=== PATIENT | male | born 1995 | race Caucasian/White ===

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

== ENCOUNTER 2017-05-05 18:35 | Inpatient (IN) | payer MEDICAID ==
[~2017-05-05] VITALS: Ht 165.1 cm; Wt 73.5 kg
[2017-05-05 20:02] LABS: Basophils # (auto) 0.1 uL; Basophils % (auto) 0.3 % (0.0-2.0); Eosinophils # (auto) 0 uL; Hematocrit 48.5 % (41.0-53.0); Hemoglobin 16.8 g/dL (13.5-17.5); Lymphocytes # (auto) 1.5 uL; Lymphocytes % (auto) 7.3 % (10.0-50.0); Mean Corpuscular Hemoglobin 30.4 pg (28.0-32.0); Mean Corpuscular Hgb Conc. 34.7 g/dL (32.0-36.0); Mean Corpuscular Volume 87.6 fL (80.0-100.0); Monocytes # (auto) 0.9 uL; Monocytes % (auto) 4.1 % (0.0-12.0); Neutrophils # (auto) 18.5 uL; Neutrophils % (auto) 88.3 % (37.0-80.0); Nucleated Red Blood Cells % 0.4 %; Platelet Count (auto) 358 10^3/uL (140-450); Red Blood Cells 5.53 10^6/uL (4.5-5.90); Red Cell Distribution Width 13.8 % (11.8-14.3)
[2017-05-05 20:26] LABS: BUN/Creatinine Ratio 11.1; Bilirubin, Total 0.5 mg/dL (0.2-1.0); Calcium 9.9 mg/dL (8.5-10.1); Potassium 3.5 mmol/L (3.5-5.1); Total Protein 9.3 g/dL (6.4-8.2)
[2017-05-05] MEDS ORDERED: PANTOPRAZOLE 40 MG/10 ML VIAL IV ONE ×2 (21:54→22:00)
[2017-05-05] MEDS ORDERED: ONDANSETRON HCL 4 MG/2 ML VIAL ONE (21:54)
[2017-05-05] MEDS ORDERED: ONDANSETRON HCL 4 MG/2 ML VIAL IV ONE (22:00)
[2017-05-05] MEDS ORDERED: NALBUPHINE HCL 10 MG/1ml INJECTION IV ONE (22:30)
[2017-05-05] MEDS ORDERED: SODIUM CHLORIDE 0.9% 1,000 ML IV ONE (22:30)
[2017-05-05 22:42] LABS: Amylase 76 U/L (25-115); Lipase 112 U/L (73-393); Magnesium 2.2 mg/dL (1.6-2.6)
[2017-05-06] MEDS ORDERED: metroNIDAZOLE 500 MG TAB PO ONE
[2017-05-06] MEDS ORDERED: metroNIDAZOLE 500 MG TAB ONE (00:10)
[2017-05-06] MEDS ORDERED: LEVOFLOXACIN 500MG 100 ML IV ONE ×2 (00:10)
[2017-05-06] MEDS ORDERED: ONDANSETRON HCL 4 MG/2 ML VIAL IV ONE (00:15)
[2017-05-06] MEDS ORDERED: PANTOPRAZOLE 40 MG/10 ML VIAL IV ONE (00:45)
[2017-05-06] MEDS ORDERED: HYDROcodone-ACET 5/325MG TAB PO PRN (00:45)
[2017-05-06] MEDS ORDERED: TEMAZEPAM 15 MG CAP PO PRN (00:45)
[2017-05-06] MEDS ORDERED: SODIUM CHLORIDE 0.9% 1,000 ML IV SCH (00:45)
[2017-05-06] MEDS ORDERED: ACETAMINOPHEN 325 MG TAB PO PRN (00:45)
[2017-05-06] MEDS ORDERED: cefTRIAXone 1GM/10ml IVPUSH 10 ML IV ONE (01:00)
[2017-05-06] MEDS: ONDANSETRON HCL 4 MG/2 ML VIAL IV PRN ×2 (03:45→07:45)
[2017-05-06] MEDS: NALBUPHINE HCL 10 MG/1ml INJECTION IV PRN ×2 (03:46→17:06)
[2017-05-06 04:14] LABS: Urine Bacteria NONE SEEN /hpf (None Seen); Urine Blood Negative /uL (Negative); Urine Mucus FEW (None Seen); Urine Specific Gravity 1.033 (1.001-1.035); Urine WBC 2 /hpf (0 - 3)
[2017-05-06 04:26] LABS: Alcohol, Urine < 3.0 mg/dL (0-5); Amphetamine Screen, Urine NEGATIVE (NEGATIVE); Barbiturate Scree,Urine NEGATIVE (NEGATIVE); Benzodiazephine Screen, Urine NEGATIVE (NEGATIVE); Cannabinoid Screen, Urine POSITIVE (NEGATIVE); Cocaine Screen, Urine NEGATIVE (NEGATIVE); Opiate Scree,Urine NEGATIVE (NEGATIVE); Phencyclidine Screen, Urine NEGATIVE (NEGATIVE)
[2017-05-06] MEDS: metroNIDAZOLE 500MG/100ML 100 ML IV SCH ×3 (06:17→21:53)
[2017-05-06] MEDS: SUCRALFATE 1 GM TAB PO SCH ×4 (06:46→21:53)
[2017-05-06] MEDS: PANTOPRAZOLE 40 MG/10 ML VIAL IV SCH ×2 (09:41→21:53)
[2017-05-06] MEDS: PROMETHAZINE HCL 25 MG/ML 1ML IV PRN ×3 (10:26→20:05)
[2017-05-06] MEDS: SODIUM CHLORIDE 0.9% 1,000 ML IV SCH (10:27)
[2017-05-06 10:43] LABS: Basophils # (auto) 0 uL; Basophils % (auto) 0.3 % (0.0-2.0); Eosinophils # (auto) 0 uL; Eosinophils % (auto) 0.3 % (0.0-7.0); Hematocrit 42.8 % (41.0-53.0); Lymphocytes # (auto) 1.5 uL; Lymphocytes % (auto) 17.2 % (10.0-50.0); Mean Corpuscular Hemoglobin 30.7 pg (28.0-32.0); Mean Corpuscular Volume 87.7 fL (80.0-100.0); Monocytes # (auto) 0.7 uL; Monocytes % (auto) 7.9 % (0.0-12.0); Neutrophils # (auto) 6.4 uL; Neutrophils % (auto) 74.3 % (37.0-80.0); Nucleated Red Blood Cells % 0.1 %; Platelet Count (auto) 281 10^3/uL (140-450); Red Blood Cells 4.88 10^6/uL (4.5-5.90); Red Cell Distribution Width 13.6 % (11.8-14.3); White Blood Cell 8.6 10^3/uL (4.4-10.8)
[2017-05-06 11:00] VITALS: BP 131/66
[2017-05-06 11:03] LABS: Albumin 4.1 g/dL (3.4-5.0); BUN/Creatinine Ratio 11.4; Bilirubin, Total 0.6 mg/dL (0.2-1.0); Calcium 8.8 mg/dL (8.5-10.1); Potassium 3.4 mmol/L (3.5-5.1); Total Protein 7.9 g/dL (6.4-8.2)
[2017-05-06 13:00] VITALS: BP 116/61
[2017-05-06] MEDS ORDERED: GOLYTELY 4L KIT PO ONE (13:15)
[2017-05-06 16:06] LABS: INR 1.12 (0.9-1.15); Prothrombin Time 12.2 sec (9.37-12.3)
[2017-05-06 17:00] VITALS: BP 139/78
[2017-05-06] MEDS: cefTRIAXone 1GM/10ml IVPUSH 10 ML IV SCH (20:05)
[2017-05-06 22:00] VITALS: BP_SYST 107; BP_SYST 129; BP_DIAS 60; BP_DIAS 66
[2017-05-07] MEDS: PROMETHAZINE HCL 25 MG/ML 1ML IV PRN ×5 (00:08→21:01)
[2017-05-07] MEDS: SODIUM CHLORIDE 0.9% 1,000 ML IV SCH ×2 (04:22→22:39)
[2017-05-07 05:00] VITALS: BP 141/77
[2017-05-07] MEDS: SUCRALFATE 1 GM TAB PO SCH ×4 (05:34→22:34)
[2017-05-07] MEDS: metroNIDAZOLE 500MG/100ML 100 ML IV SCH ×3 (05:34→22:34)
[2017-05-07] MEDS ORDERED: GOLYTELY 4L KIT PO ONE (06:00)
[2017-05-07 07:46] LABS: Basophils # (auto) 0 uL; Basophils % (auto) 0.1 % (0.0-2.0); Eosinophils # (auto) 0 uL; Hematocrit 44.9 % (41.0-53.0); Hemoglobin 15.3 g/dL (13.5-17.5); Lymphocytes # (auto) 0.9 uL; Lymphocytes % (auto) 6.3 % (10.0-50.0); Mean Corpuscular Volume 88.4 fL (80.0-100.0); Monocytes # (auto) 0.4 uL; Monocytes % (auto) 2.8 % (0.0-12.0); Neutrophils # (auto) 12.9 uL; Neutrophils % (auto) 90.8 % (37.0-80.0); Platelet Count (auto) 283 10^3/uL (140-450); Red Blood Cells 5.08 10^6/uL (4.5-5.90); White Blood Cell 14.2 10^3/uL (4.4-10.8)
[2017-05-07 08:09] LABS: Albumin 4.2 g/dL (3.4-5.0); BUN/Creatinine Ratio 8.3; Bilirubin, Total 0.6 mg/dL (0.2-1.0); Calcium 8.6 mg/dL (8.5-10.1); Potassium 3.2 mmol/L (3.5-5.1); Total Protein 7.9 g/dL (6.4-8.2)
[2017-05-07] MEDS ORDERED: FLUMAZENIL 0.1 MG/ML INJ 10ML MDV IV ONE (08:15)
[2017-05-07] MEDS ORDERED: diphenhdrAMINE HCL 50 MG/1 ML VL ONE (08:15)
[2017-05-07] MEDS ORDERED: SODIUM CHLORIDE LOCK 10 ML ONE (08:15)
[2017-05-07] MEDS ORDERED: NALOXONE HCL 0.4 MG/ML VIAL ONE (08:15)
[2017-05-07 09:00] VITALS: BP 151/74
[2017-05-07] MEDS: NALBUPHINE HCL 10 MG/1ml INJECTION IV PRN ×2 (09:20→20:53)
[2017-05-07] MEDS ORDERED: POTASSIUM CHLORIDE 40 MEQ, LIDOCAINE 1% (LOCAL ANESTH.) 4 ML in SODIUM CHL 0.9% 250 ML IV ONE (09:45)
[2017-05-07] MEDS: PANTOPRAZOLE 40 MG/10 ML VIAL IV SCH ×2 (10:24→22:34)
[2017-05-07] MEDS: fentaNYL CITRATE 100 MCG/2 ML VL ONE ×5 (12:04→12:18)
[2017-05-07] MEDS: MIDAZOLAM HCL 5 MG/ML-1ML VIAL ONE ×6 (12:04→12:18)
[2017-05-07 13:00] VITALS: BP 131/75
[2017-05-07 17:00] VITALS: BP 130/70
[2017-05-07] MEDS ORDERED: PANT40T (17:57)
[2017-05-07] MEDS ORDERED: SUCR1SUS5 (17:57)
[2017-05-07] MEDS ORDERED: LORA-654 (17:57)
[2017-05-07] MEDS: cefTRIAXone 1GM/10ml IVPUSH 10 ML IV SCH (21:16)
[2017-05-07 21:30] VITALS: BP 147/68
[2017-05-08] MEDS: HYOSCYAMINE SULF 0.125 MG TAB PO PRN ×2 (00:35→06:39)
[2017-05-08] MEDS: PROMETHAZINE HCL 25 MG/ML 1ML IV PRN ×3 (00:40→09:32)
[2017-05-08] MEDS: NALBUPHINE HCL 10 MG/1ml INJECTION IV PRN (04:55)
[2017-05-08 05:00] VITALS: BP 123/59
[2017-05-08] MEDS: SUCRALFATE 1 GM TAB PO SCH (06:28)
[2017-05-08] MEDS: metroNIDAZOLE 500MG/100ML 100 ML IV SCH (06:28)
[2017-05-08 07:26] LABS: Basophils # (auto) 0 uL; Basophils % (auto) 0.5 % (0.0-2.0); Eosinophils # (auto) 0.1 uL; Eosinophils % (auto) 0.8 % (0.0-7.0); Hematocrit 43.7 % (41.0-53.0); Lymphocytes # (auto) 2.5 uL; Lymphocytes % (auto) 32.7 % (10.0-50.0); Mean Corpuscular Hemoglobin 30.3 pg (28.0-32.0); Mean Corpuscular Hgb Conc. 34.2 g/dL (32.0-36.0); Mean Corpuscular Volume 88.5 fL (80.0-100.0); Monocytes # (auto) 0.8 uL; Monocytes % (auto) 9.9 % (0.0-12.0); Neutrophils # (auto) 4.3 uL; Neutrophils % (auto) 56.1 % (37.0-80.0); Nucleated Red Blood Cells % 0.3 %; Platelet Count (auto) 274 10^3/uL (140-450); Red Blood Cells 4.94 10^6/uL (4.5-5.90); White Blood Cell 7.7 10^3/uL (4.4-10.8)
[2017-05-08 07:42] LABS: Albumin 3.8 g/dL (3.4-5.0); BUN/Creatinine Ratio 7.8; Bilirubin, Total 0.5 mg/dL (0.2-1.0); Calcium 8.4 mg/dL (8.5-10.1); Potassium 3.5 mmol/L (3.5-5.1); Total Protein 7.2 g/dL (6.4-8.2)
[2017-05-08 09:00] VITALS: BP 127/61
[2017-05-08] MEDS: PANTOPRAZOLE 40 MG/10 ML VIAL IV SCH (09:25)
[2017-05-08 10:44] VITALS: BP 127/61
[2017-05-08 11:03] VITALS: BP 127/61
[2017-07-05] MEDS ORDERED: PANT40TA2 PO (06:58)
== END 2017-05-08 11:45 | disposition home or self-care (01) | DRG 720 ==
LOC: ER 18:35 → EDBD 18:35 → OVERFLOW 19:36 → WEST WING 05-06 07:49 → CENTRAL 05-06 11:00
PROVIDERS: ADMIT Nurse Practitioner; ATTEND Internal Medicine
PROC: 0DBE8ZX Excision of Large Intestine, Via Natural or Artificial Opening Endoscopic, Diagnostic (ICD-10-PCS; principal; 2017-05-07 12:02)
DX: A41.9 Sepsis, unspecified organism (principal); E86.0 Dehydration; K52.9 Noninfective gastroenteritis and colitis, unspecified; K21.9 Gastro-esophageal reflux disease without esophagitis; Z90.49 Acquired absence of other specified parts of digestive tract; Z91.19 Patient's noncompliance with other medical treatment and regimen; Z83.79 Family history of other diseases of the digestive system; Z84.89 Family history of other specified conditions
CPT/HCPCS: 36415; 36600; 45380; 74176; 80053; 80307; 81001; 82150; 82805; 82962; 83605; 83690; 83735; 84484; 85025; 85610; 87040; 87045; 87493; 87899; 96365; 96366; 96375; C9113; J1956; J2001; J2250; J2405; J3490

== ENCOUNTER 2017-05-09 22:39 | Emergency (ER) | payer MEDICAID ==
[~2017-05-09] VITALS: Ht 165.1 cm; Wt 81.6 kg
[~2017-05-09 22:39] MED LIST: LORA-654; PANT40T; SUCR1SUS5
[2017-05-09 22:42] VITALS: BP 98/78
[2017-05-09] MEDS ORDERED: ONDANSETRON ODT 4 MG TAB PO ONE (23:15)
[2017-07-05] MEDS ORDERED: PANT40TA2 PO (06:58)
== END 2017-05-09 23:16 | disposition left against medical advice (07) ==
LOC: ER 22:48
DX: R10.84 Generalized abdominal pain (principal); R11.2 Nausea with vomiting, unspecified; Z53.21 Procedure and treatment not carried out due to patient leaving prior to being seen by health care provider
CPT/HCPCS: Q0162

== ENCOUNTER 2017-06-22 23:20 | Inpatient (IN) | payer MEDICAID ==
[~2017-06-22] VITALS: Ht 167.6 cm; Wt 76.1 kg
[2017-06-23 00:16] LABS: Basophils # (auto) 0.1 uL; Basophils % (auto) 0.5 % (0.0-2.0); Eosinophils # (auto) 0 uL; Eosinophils % (auto) 0.1 % (0.0-7.0); Hematocrit 50.5 % (41.0-53.0); Hemoglobin 17.2 g/dL (13.5-17.5); Lymphocytes # (auto) 2.7 uL; Lymphocytes % (auto) 18.1 % (10.0-50.0); Mean Corpuscular Hemoglobin 29.9 pg (28.0-32.0); Mean Corpuscular Hgb Conc. 34.1 g/dL (32.0-36.0); Mean Corpuscular Volume 87.7 fL (80.0-100.0); Monocytes # (auto) 0.8 uL; Monocytes % (auto) 5.4 % (0.0-12.0); Neutrophils # (auto) 11.3 uL; Neutrophils % (auto) 75.9 % (37.0-80.0); Nucleated Red Blood Cells % 0.1 %; Platelet Count (auto) 355 10^3/uL (140-450); Red Blood Cells 5.76 10^6/uL (4.5-5.90); Red Cell Distribution Width 14.2 % (11.8-14.3); White Blood Cell 14.9 10^3/uL (4.4-10.8)
[2017-06-23 00:43] LABS: Alanine Aminotransferase 33 U/L (16-61); Anion Gap 15 (5-15); Aspartate Aminotransferase 16 U/L (15-37); Blood Urea Nitrogen 10 mg/dL (7-18); Calcium 10.1 mg/dL (8.5-10.1); Carbon Dioxide 20 mmol/L (21-32); Chloride 105 mmol/L (98-107); GFR African American 95 mL/min; GFR Non-African American 78 mL/min; Glucose 106 mg/dL (74-106); Lipase 159 U/L (73-393); Potassium 3.2 mmol/L (3.5-5.1); Sodium 140 mmol/L (136-145)
[2017-06-23 00:50] LABS: Alkaline Phosphatase 95 U/L (45-117); Bilirubin, Total 0.6 mg/dL (0.2-1.0)
[2017-06-23] MEDS ORDERED: ONDANSETRON HCL 4 MG/2 ML VIAL IV ONE (07:15)
[2017-06-23] MEDS ORDERED: SODIUM CHLORIDE 0.9% 1,000 ML IV ONE (07:33)
[2017-06-23] MEDS ORDERED: PANTOPRAZOLE 40 MG/10 ML VIAL IV ONE (08:15)
[2017-06-23] MEDS ORDERED: VANCOMYCIN 1GM/250ML 250 ML IV ONE (08:15)
[2017-06-23] MEDS ORDERED: NALBUPHINE HCL 10 MG/1ml INJECTION IV ONE (08:15)
[2017-06-23] MEDS ORDERED: PIPERACILLIN-TAZOB 3.375GM 100 ML IV ONE (08:15)
[2017-06-23] MEDS ORDERED: HYDROcodone-ACET 5/325MG TAB PO PRN (09:15)
[2017-06-23] MEDS ORDERED: NITROGLYCERIN 0.4 MG SL TAB SL PRN (09:15)
[2017-06-23] MEDS ORDERED: MORPHINE SULFATE 4 MG/ML SYR/VIAL IV PRN (09:15)
[2017-06-23] MEDS ORDERED: TEMAZEPAM 15 MG CAP PO PRN (09:15)
[2017-06-23] MEDS ORDERED: ACETAMINOPHEN 325 MG TAB PO PRN (09:15)
[2017-06-23] MEDS ORDERED: POTASSIUM CHLORIDE 20 MEQ, LIDOCAINE 1% (LOCAL ANESTH.) 2 ML in SODIUM CHL 0.9% 100 ML IV ONE (09:15)
[2017-06-23] MEDS: SODIUM CHLORIDE 0.9% 1,000 ML IV SCH ×2 (09:24→16:48)
[2017-06-23] MEDS: PIPERACILLIN-TAZOB 3.375GM 100 ML IV SCH ×3 (09:24→21:37)
[2017-06-23] MEDS ORDERED: FAMOTIDINE (10MG/ML) 2ML VL IV SCH (10:00)
[2017-06-23] MEDS: metroNIDAZOLE 500MG/100ML 100 ML IV SCH ×2 (12:38→20:19)
[2017-06-23] MEDS ORDERED: PROM1SUP4 PR (13:21)
[2017-06-23] MEDS: ONDANSETRON HCL 4 MG/2 ML VIAL IV PRN ×3 (13:31→20:19)
[2017-06-23 14:23] LABS: INR 1.07 (0.9-1.15); Prothrombin Time 11.7 sec (9.37-12.3)
[2017-06-23 14:26] LABS: BUN/Creatinine Ratio 7.9; Calcium 8.2 mg/dL (8.5-10.1); Potassium 3.9 mmol/L (3.5-5.1)
[2017-06-23 15:25] LABS: Urine Bacteria NONE SEEN /hpf (None Seen); Urine Blood Negative /uL (Negative); Urine Mucus FEW (None Seen); Urine Specific Gravity 1.029 (1.001-1.035); Urine WBC 3 /hpf (0 - 3)
[2017-06-23 15:38] LABS: Alcohol, Urine < 3.0 mg/dL (0-5); Amphetamine Screen, Urine NEGATIVE (NEGATIVE); Barbiturate Scree,Urine NEGATIVE (NEGATIVE); Benzodiazephine Screen, Urine NEGATIVE (NEGATIVE); Cannabinoid Screen, Urine POSITIVE (NEGATIVE); Cocaine Screen, Urine NEGATIVE (NEGATIVE); Opiate Scree,Urine NEGATIVE (NEGATIVE); Phencyclidine Screen, Urine NEGATIVE (NEGATIVE)
[2017-06-23] MEDS: MORPHINE SULFATE 4 MG/ML SYR/VIAL IV PRN ×2 (17:23→21:38)
[2017-06-23 17:29] VITALS: BP 145/98
[2017-06-23] MEDS: PANTOPRAZOLE 40 MG/10 ML VIAL IV SCH (21:37)
[2017-06-23 22:00] VITALS: BP 144/72
[2017-06-23] MEDS: PROMETHAZINE HCL 25 MG/ML 1ML IV PRN (23:48)
[2017-06-24] MEDS: SODIUM CHLORIDE 0.9% 1,000 ML IV SCH ×3 (02:56→17:02)
[2017-06-24] MEDS: PIPERACILLIN-TAZOB 3.375GM 100 ML IV SCH ×4 (02:57→21:34)
[2017-06-24] MEDS: metroNIDAZOLE 500MG/100ML 100 ML IV SCH ×2 (04:45→12:38)
[2017-06-24 05:00] VITALS: BP 134/66
[2017-06-24] MEDS: PROMETHAZINE HCL 25 MG/ML 1ML IV PRN ×4 (05:35→22:34)
[2017-06-24] MEDS: MORPHINE SULFATE 4 MG/ML SYR/VIAL IV PRN ×3 (07:03→18:31)
[2017-06-24 08:00] VITALS: BP 121/60
[2017-06-24 08:27] LABS: Basophils # (auto) 0 uL; Basophils % (auto) 0.3 % (0.0-2.0); Eosinophils # (auto) 0 uL; Eosinophils % (auto) 0.4 % (0.0-7.0); Hematocrit 43.3 % (41.0-53.0); Hemoglobin 14.4 g/dL (13.5-17.5); Lymphocytes # (auto) 2.9 uL; Lymphocytes % (auto) 29.7 % (10.0-50.0); Mean Corpuscular Hemoglobin 29.5 pg (28.0-32.0); Mean Corpuscular Hgb Conc. 33.3 g/dL (32.0-36.0); Mean Corpuscular Volume 88.5 fL (80.0-100.0); Monocytes # (auto) 0.7 uL; Monocytes % (auto) 6.9 % (0.0-12.0); Neutrophils # (auto) 6.1 uL; Neutrophils % (auto) 62.7 % (37.0-80.0); Nucleated Red Blood Cells % 0.1 %; Platelet Count (auto) 249 10^3/uL (140-450); Red Blood Cells 4.89 10^6/uL (4.5-5.90); Red Cell Distribution Width 13.9 % (11.8-14.3); White Blood Cell 9.8 10^3/uL (4.4-10.8)
[2017-06-24 08:52] LABS: Albumin 3.6 g/dL (3.4-5.0); BUN/Creatinine Ratio 5.5; Bilirubin, Total 0.8 mg/dL (0.2-1.0); Calcium 8.1 mg/dL (8.5-10.1); Potassium 3.8 mmol/L (3.5-5.1); Total Protein 6.9 g/dL (6.4-8.2)
[2017-06-24 09:00] VITALS: BP 121/60
[2017-06-24] MEDS: PANTOPRAZOLE 40 MG/10 ML VIAL IV SCH (09:23)
[2017-06-24] MEDS: MULTIPLE VITAMIN TAB PO SCH (09:23)
[2017-06-24] MEDS ORDERED: PANTOPRAZOLE 40 MG/10 ML VIAL IV SCH (10:00)
[2017-06-24] MEDS ORDERED: fentaNYL CITRATE 100 MCG/2 ML VL ONE (10:52)
[2017-06-24] MEDS ORDERED: MIDAZOLAM HCL 1MG/1ML-2 ML VIAL ONE (10:53)
[2017-06-24] MEDS ORDERED: PROPOFOL 10 MG/ML 20 ML IV ONE (10:53)
[2017-06-24] MEDS ORDERED: ONDANSETRON HCL 4 MG/2 ML VIAL ONE (10:53)
[2017-06-24] MEDS ORDERED: PANTOPRAZOLE 40 MG TAB PO ONE (11:45)
[2017-06-24] MEDS ORDERED: MORPHINE SULFATE 4 MG/ML SYR/VIAL IV PRN (11:45)
[2017-06-24] MEDS ORDERED: METOCLOPRAMIDE HCL 5MG/ml INJ 2ml VIAL IV ONE (11:45)
[2017-06-24 13:00] VITALS: BP 163/85
[2017-06-24 17:00] VITALS: BP 131/51
[2017-06-24] MEDS: VANCOMYCIN HCL 125MG/5ML ORAL SOL PO SCH ×2 (18:53→21:34)
[2017-06-24 21:52] VITALS: BP 141/65
[2017-06-25] MEDS: MORPHINE SULFATE 4 MG/ML SYR/VIAL IV PRN ×4 (00:18→18:57)
[2017-06-25] MEDS: PROMETHAZINE HCL 25 MG/ML 1ML IV PRN ×4 (00:19→18:58)
[2017-06-25] MEDS: SODIUM CHLORIDE 0.9% 1,000 ML IV SCH ×3 (03:19→22:03)
[2017-06-25] MEDS: PIPERACILLIN-TAZOB 3.375GM 100 ML IV SCH ×2 (03:19→09:48)
[2017-06-25 05:39] VITALS: BP 131/62
[2017-06-25] MEDS: VANCOMYCIN HCL 125MG/5ML ORAL SOL PO SCH ×4 (05:59→22:03)
[2017-06-25 09:00] VITALS: BP 142/78
[2017-06-25] MEDS: PANTOPRAZOLE 40 MG TAB PO SCH ×2 (09:48→14:34)
[2017-06-25] MEDS: MULTIPLE VITAMIN TAB PO SCH (09:48)
[2017-06-25 12:27] VITALS: BP 137/90
[2017-06-25] MEDS: metroNIDAZOLE 500 MG TAB PO SCH ×2 (14:33→22:03)
[2017-06-25 17:00] VITALS: BP 130/74
[2017-06-25 21:55] VITALS: BP 126/68
[2017-06-26] MEDS: MORPHINE SULFATE 4 MG/ML SYR/VIAL IV PRN ×5 (00:47→21:50)
[2017-06-26] MEDS: PROMETHAZINE HCL 25 MG/ML 1ML IV PRN ×5 (00:48→21:50)
[2017-06-26 05:17] VITALS: BP 128/55
[2017-06-26] MEDS: VANCOMYCIN HCL 125MG/5ML ORAL SOL PO SCH ×4 (06:02→21:49)
[2017-06-26] MEDS: metroNIDAZOLE 500 MG TAB PO SCH ×3 (06:02→21:49)
[2017-06-26] MEDS: SODIUM CHLORIDE 0.9% 1,000 ML IV SCH ×3 (06:02→21:49)
[2017-06-26 06:34] LABS: Basophils # (auto) 0 uL; Basophils % (auto) 0.3 % (0.0-2.0); Eosinophils # (auto) 0.1 uL; Eosinophils % (auto) 0.8 % (0.0-7.0); Hematocrit 42.9 % (41.0-53.0); Lymphocytes # (auto) 2.6 uL; Lymphocytes % (auto) 33.3 % (10.0-50.0); Mean Corpuscular Hemoglobin 30.2 pg (28.0-32.0); Mean Corpuscular Hgb Conc. 34.9 g/dL (32.0-36.0); Mean Corpuscular Volume 86.5 fL (80.0-100.0); Monocytes # (auto) 0.7 uL; Monocytes % (auto) 8.6 % (0.0-12.0); Neutrophils # (auto) 4.5 uL; Nucleated Red Blood Cells % 0.3 %; Platelet Count (auto) 250 10^3/uL (140-450); Red Blood Cells 4.96 10^6/uL (4.5-5.90); Red Cell Distribution Width 13.5 % (11.8-14.3); White Blood Cell 7.9 10^3/uL (4.4-10.8)
[2017-06-26 06:59] LABS: Albumin 3.6 g/dL (3.4-5.0); BUN/Creatinine Ratio 9.5; Bilirubin, Total 0.7 mg/dL (0.2-1.0); Calcium 8.3 mg/dL (8.5-10.1); Total Protein 6.8 g/dL (6.4-8.2)
[2017-06-26 09:00] VITALS: BP 98/75
[2017-06-26] MEDS: MULTIPLE VITAMIN TAB PO SCH (09:30)
[2017-06-26] MEDS: PANTOPRAZOLE 40 MG TAB PO SCH (09:30)
[2017-06-26] MEDS ORDERED: POTASSIUM CHLORIDE 80 MEQ, LIDOCAINE 1% (LOCAL ANESTH.) 6 ML in SODIUM CHL 0.9% 500 ML IV ONE (10:45)
[2017-06-26] MEDS ORDERED: CITALOPRAM HYDROBR 20 MG TAB PO ONE (10:45)
[2017-06-26 13:00] VITALS: BP 117/72
[2017-06-26 16:17] VITALS: BP 130/70
[2017-06-26 21:40] VITALS: BP 148/71
[2017-06-27] MEDS: LORazepam 0.5 MG TAB PO PRN ×2 (02:52→15:39)
[2017-06-27 04:33] VITALS: BP 130/69
[2017-06-27] MEDS: VANCOMYCIN HCL 125MG/5ML ORAL SOL PO SCH ×4 (05:17→22:00)
[2017-06-27] MEDS: SODIUM CHLORIDE 0.9% 1,000 ML IV SCH ×3 (05:17→22:38)
[2017-06-27] MEDS: metroNIDAZOLE 500 MG TAB PO SCH ×3 (05:17→22:39)
[2017-06-27] MEDS: PROMETHAZINE HCL 25 MG/ML 1ML IV PRN ×4 (05:18→23:53)
[2017-06-27] MEDS: MORPHINE SULFATE 4 MG/ML SYR/VIAL IV PRN ×4 (05:28→23:53)
[2017-06-27 07:05] LABS: Basophils # (auto) 0 uL; Basophils % (auto) 0.2 % (0.0-2.0); Eosinophils # (auto) 0 uL; Hematocrit 46.9 % (41.0-53.0); Hemoglobin 16.4 g/dL (13.5-17.5); Lymphocytes # (auto) 1.1 uL; Lymphocytes % (auto) 6.6 % (10.0-50.0); Mean Corpuscular Hemoglobin 30.2 pg (28.0-32.0); Mean Corpuscular Volume 86.2 fL (80.0-100.0); Monocytes # (auto) 0.8 uL; Monocytes % (auto) 4.7 % (0.0-12.0); Neutrophils # (auto) 14.6 uL; Neutrophils % (auto) 88.5 % (37.0-80.0); Nucleated Red Blood Cells % 0.2 %; Platelet Count (auto) 305 10^3/uL (140-450); Red Blood Cells 5.45 10^6/uL (4.5-5.90); Red Cell Distribution Width 13.7 % (11.8-14.3); White Blood Cell 16.5 10^3/uL (4.4-10.8)
[2017-06-27 07:24] LABS: BUN/Creatinine Ratio 7.9; Calcium 8.9 mg/dL (8.5-10.1); Magnesium 2.2 mg/dL (1.6-2.6); Potassium 3.7 mmol/L (3.5-5.1)
[2017-06-27 08:27] VITALS: BP 153/85
[2017-06-27] MEDS: CITALOPRAM HYDROBR 20 MG TAB PO SCH (09:54)
[2017-06-27] MEDS: PANTOPRAZOLE 40 MG TAB PO SCH (09:54)
[2017-06-27] MEDS: MULTIPLE VITAMIN TAB PO SCH (09:57)
[2017-06-27 12:30] VITALS: BP 132/54
[2017-06-27 17:09] VITALS: BP 143/70
[2017-06-27] MEDS: BOOST 8 ounces PO SCH (18:00)
[2017-06-27 22:00] VITALS: BP 131/74
[2017-06-28 05:00] VITALS: BP 134/56
[2017-06-28] MEDS: VANCOMYCIN HCL 125MG/5ML ORAL SOL PO SCH ×2 (05:16→11:43)
[2017-06-28] MEDS: SODIUM CHLORIDE 0.9% 1,000 ML IV SCH (05:18)
[2017-06-28] MEDS: metroNIDAZOLE 500 MG TAB PO SCH (05:19)
[2017-06-28] MEDS: PROMETHAZINE HCL 25 MG/ML 1ML IV PRN (06:00)
[2017-06-28] MEDS: MORPHINE SULFATE 4 MG/ML SYR/VIAL IV PRN (06:00)
[2017-06-28 06:13] LABS: Basophils # (auto) 0 uL; Basophils % (auto) 0.5 % (0.0-2.0); Eosinophils # (auto) 0.1 uL; Eosinophils % (auto) 1.1 % (0.0-7.0); Hematocrit 45.9 % (41.0-53.0); Hemoglobin 15.7 g/dL (13.5-17.5); Lymphocytes # (auto) 3.1 uL; Lymphocytes % (auto) 38.9 % (10.0-50.0); Mean Corpuscular Hemoglobin 29.7 pg (28.0-32.0); Mean Corpuscular Hgb Conc. 34.2 g/dL (32.0-36.0); Mean Corpuscular Volume 86.7 fL (80.0-100.0); Monocytes # (auto) 0.7 uL; Monocytes % (auto) 8.9 % (0.0-12.0); Neutrophils # (auto) 4.1 uL; Neutrophils % (auto) 50.6 % (37.0-80.0); Nucleated Red Blood Cells % 0.1 %; Platelet Count (auto) 286 10^3/uL (140-450); Red Blood Cells 5.29 10^6/uL (4.5-5.90); Red Cell Distribution Width 13.7 % (11.8-14.3); White Blood Cell 8.1 10^3/uL (4.4-10.8)
[2017-06-28 06:53] LABS: BUN/Creatinine Ratio 7.2; Calcium 8.3 mg/dL (8.5-10.1); Potassium 3.5 mmol/L (3.5-5.1)
[2017-06-28 08:00] VITALS: BP 122/66
[2017-06-28] MEDS: BOOST 8 ounces PO SCH ×2 (08:00→11:43)
[2017-06-28 09:00] VITALS: BP 122/66
[2017-06-28] MEDS: MULTIPLE VITAMIN TAB PO SCH (09:34)
[2017-06-28] MEDS: CITALOPRAM HYDROBR 20 MG TAB PO SCH (09:34)
[2017-06-28] MEDS: PANTOPRAZOLE 40 MG TAB PO SCH (09:34)
[2017-06-28 11:44] VITALS: BP 122/66
[2017-07-05] MEDS ORDERED: PANT40TA2 PO (06:58)
== END 2017-06-28 13:10 | disposition home or self-care (01) | DRG 241 ==
LOC: ER 23:23 → TELE 23:24 → TELE-EAST 06-23 15:48
PROVIDERS: ADMIT Internal Medicine; ATTEND Internal Medicine
PROC: 0DB68ZX Excision of Stomach, Via Natural or Artificial Opening Endoscopic, Diagnostic (ICD-10-PCS; principal; 2017-06-24 11:20)
DX: K29.71 Gastritis, unspecified, with bleeding (principal); A04.72 Enterocolitis due to Clostridium difficile, not specified as recurrent; E86.0 Dehydration; K21.9 Gastro-esophageal reflux disease without esophagitis; E87.6 Hypokalemia; F32.9 Major depressive disorder, single episode, unspecified; F12.90 Cannabis use, unspecified, uncomplicated; F41.9 Anxiety disorder, unspecified; N18.2 Chronic kidney disease, stage 2 (mild); Z90.49 Acquired absence of other specified parts of digestive tract; Z79.899 Other long term (current) drug therapy
CPT/HCPCS: 36415; 43239; 74176; 80048; 80053; 80307; 81001; 82270; 83605; 83690; 83735; 83880; 84484; 85025; 85610; 87040; 87045; 87493; 87899; 93005; 96361; 96374; 96375; C9113; J2001; J2250; J2405; J2543; J2704; J3490

== ENCOUNTER 2017-07-02 11:18 | Emergency (ER) | payer MEDICAID ==
[~2017-07-02] VITALS: Ht 165.1 cm; Wt 77.1 kg
[~2017-07-02 11:18] MED LIST changes: -LORA-654; +PROM1SUP4 PR; -SUCR1SUS5
[2017-07-02 11:32] VITALS: BP 132/90
[2017-07-02 12:10] LABS: Basophils # (auto) 0 uL; Basophils % (auto) 0.2 % (0.0-2.0); Eosinophils # (auto) 0 uL; Eosinophils % (auto) 0.2 % (0.0-7.0); Hematocrit 46.9 % (41.0-53.0); Hemoglobin 15.9 g/dL (13.5-17.5); Lymphocytes # (auto) 1.4 uL; Lymphocytes % (auto) 8.5 % (10.0-50.0); Mean Corpuscular Hemoglobin 29.8 pg (28.0-32.0); Mean Corpuscular Volume 87.8 fL (80.0-100.0); Monocytes # (auto) 0.6 uL; Monocytes % (auto) 3.6 % (0.0-12.0); Neutrophils # (auto) 14.8 uL; Neutrophils % (auto) 87.5 % (37.0-80.0); Platelet Count (auto) 324 10^3/uL (140-450); Red Blood Cells 5.35 10^6/uL (4.5-5.90); Red Cell Distribution Width 14.2 % (11.8-14.3)
[2017-07-02 12:31] LABS: Albumin 4.1 g/dL (3.4-5.0); BUN/Creatinine Ratio 5.8; Bilirubin, Total 0.3 mg/dL (0.2-1.0); Calcium 8.8 mg/dL (8.5-10.1); Potassium 3.8 mmol/L (3.5-5.1); Total Protein 7.7 g/dL (6.4-8.2)
[2017-07-05] MEDS ORDERED: PANT40TA2 PO (06:58)
== END 2017-07-02 12:01 | disposition left against medical advice (07) ==
LOC: EDBD 11:18 → ER 11:18
DX: R10.9 Unspecified abdominal pain (principal); Z53.21 Procedure and treatment not carried out due to patient leaving prior to being seen by health care provider
CPT/HCPCS: 36415; 80053; 82150; 83690; 85025; 93005

== ENCOUNTER 2017-07-03 09:56 | Emergency (ER) | payer MEDICAID ==
[~2017-07-03] VITALS: Ht 175.3 cm; Wt 72.6 kg
[2017-07-03] MEDS ORDERED: SODIUM CHLORIDE 0.9% 1,000 ML IVB ONE (10:52)
[2017-07-03] MEDS ORDERED: PANTOPRAZOLE 40 MG/10 ML VIAL IV STA (10:52)
[2017-07-03] MEDS ORDERED: PROCHLORPERAZINE EDISYLATE 5 MG/ML 2ML VIAL IV ONE (11:00)
[2017-07-03] MEDS ORDERED: MORPHINE SULFATE 4 MG/ML SYR/VIAL IV ONE (11:00)
[2017-07-03 11:23] LABS: Basophils # (auto) 0 uL; Basophils % (auto) 0.4 % (0.0-2.0); Eosinophils # (auto) 0 uL; Eosinophils % (auto) 0.1 % (0.0-7.0); Hematocrit 49.2 % (41.0-53.0); Hemoglobin 16.5 g/dL (13.5-17.5); Lymphocytes # (auto) 1.4 uL; Mean Corpuscular Hemoglobin 29.6 pg (28.0-32.0); Mean Corpuscular Hgb Conc. 33.6 g/dL (32.0-36.0); Mean Corpuscular Volume 88.2 fL (80.0-100.0); Monocytes # (auto) 0.6 uL; Monocytes % (auto) 4.6 % (0.0-12.0); Neutrophils # (auto) 11.8 uL; Neutrophils % (auto) 84.9 % (37.0-80.0); Nucleated Red Blood Cells % 0.1 %; Platelet Count (auto) 390 10^3/uL (140-450); Red Blood Cells 5.57 10^6/uL (4.5-5.90); Red Cell Distribution Width 14.2 % (11.8-14.3); White Blood Cell 13.9 10^3/uL (4.4-10.8)
[2017-07-03 11:54] LABS: Albumin 4.6 g/dL (3.4-5.0); BUN/Creatinine Ratio 6.3; Bilirubin, Total 0.5 mg/dL (0.2-1.0); Calcium 9.3 mg/dL (8.5-10.1); Potassium 3.4 mmol/L (3.5-5.1); Total Protein 8.3 g/dL (6.4-8.2)
[2017-07-03 13:00] VITALS: BP 128/76
[2017-07-03] MEDS ORDERED: BACITRACIN TOP OINT 1 UD PKG TOP ONE (13:04)
[2017-07-05] MEDS ORDERED: PANT40TA2 PO (06:58)
== END 2017-07-03 13:38 | disposition home or self-care (01) ==
LOC: ER 09:56 → EDBD 09:56 → EDSEX 09:56 → ER 13:38
DX: K21.9 Gastro-esophageal reflux disease without esophagitis (principal); F12.10 Cannabis abuse, uncomplicated; Z90.49 Acquired absence of other specified parts of digestive tract
CPT/HCPCS: 36415; 80053; 82150; 83690; 85025; 94761; 96361; 96374; 96375; 99285; C9113; J0780; J2270

== ENCOUNTER 2017-09-04 12:19 | Emergency (ER) | payer MEDICAID, OTHER ==
[~2017-09-04] VITALS: Ht 165.1 cm; Wt 77.1 kg
[~2017-09-04 12:19] MED LIST changes: +PANT40TA2 PO; -PROM1SUP4 PR
[2017-09-04] MEDS ORDERED: SODIUM CHLORIDE 0.9% 1,000 ML IVB ONE (12:32)
[2017-09-04] MEDS ORDERED: PANTOPRAZOLE 40 MG/10 ML VIAL IV STA (12:32)
[2017-09-04] MEDS ORDERED: MORPHINE SULFATE 4 MG/ML SYR/VIAL ONE (12:40)
[2017-09-04] MEDS ORDERED: ONDANSETRON HCL 4 MG/2 ML VIAL IV ONE (12:45)
[2017-09-04] MEDS ORDERED: MORPHINE SULFATE 8mg/ml INJ SDV IV ONE (12:45)
[2017-09-04 12:54] LABS: Basophils # (auto) 0 uL; Basophils % (auto) 0.3 % (0.0-2.0); Eosinophils # (auto) 0 uL; Eosinophils % (auto) 0.1 % (0.0-7.0); Hematocrit 49.6 % (41.0-53.0); Hemoglobin 16.8 g/dL (13.5-17.5); Lymphocytes # (auto) 1.5 uL; Mean Corpuscular Hgb Conc. 33.8 g/dL (32.0-36.0); Mean Corpuscular Volume 88.7 fL (80.0-100.0); Monocytes # (auto) 0.7 uL; Neutrophils # (auto) 14.7 uL; Neutrophils % (auto) 86.6 % (37.0-80.0); Nucleated Red Blood Cells % 0.1 %; Platelet Count (auto) 289 10^3/uL (140-450); Red Blood Cells 5.59 10^6/uL (4.5-5.90); Red Cell Distribution Width 13.9 % (11.8-14.3); White Blood Cell 16.9 10^3/uL (4.4-10.8)
[2017-09-04 13:19] LABS: Albumin 4.7 g/dL (3.4-5.0); BUN/Creatinine Ratio 11.4; Bilirubin, Total 0.8 mg/dL (0.2-1.0); Calcium 9.7 mg/dL (8.5-10.1); Potassium 3.6 mmol/L (3.5-5.1); Total Protein 8.6 g/dL (6.4-8.2)
[2017-09-04] MEDS ORDERED: PROCHLORPERAZINE EDISYLATE 5 MG/ML 2ML VIAL IV ONE (14:00)
[2017-09-04] MEDS ORDERED: SODIUM CHLORIDE 0.9% 1,000 ML IV ONE (14:00)
[2017-09-04 15:04] VITALS: BP 152/63
== END 2017-09-04 15:05 | disposition home or self-care (01) ==
LOC: ER 12:19 → EDBD 12:19 → ER 15:02
DX: F12.988 Cannabis use, unspecified with other cannabis-induced disorder (principal); R11.10 Vomiting, unspecified; K21.9 Gastro-esophageal reflux disease without esophagitis; Z88.8 Allergy status to other drugs, medicaments and biological substances; Z90.49 Acquired absence of other specified parts of digestive tract
CPT/HCPCS: 36415; 80053; 82150; 83690; 85025; 94761; 96361; 96374; 96375; 99285; C9113; J0780; J2270; J2405; J7030

== ENCOUNTER 2017-09-06 10:55 | Emergency (ER) | payer OTHER ==
[~2017-09-06] VITALS: Ht 167.6 cm; Wt 63.5 kg
[2017-09-06] MEDS ORDERED: SODIUM CHLORIDE 0.9% 1,000 ML IV ONE ×2 (11:07)
[2017-09-06] MEDS ORDERED: PROMETHAZINE HCL 25 MG/ML 1ML ONE (11:12)
[2017-09-06] MEDS ORDERED: METOCLOPRAMIDE HCL 5MG/ml INJ 2ml VIAL IV ONE (11:15)
[2017-09-06 11:21] VITALS: BP 141/88
[2017-09-06] MEDS ORDERED: PROMETHAZINE HCL 25 MG/ML 1ML IM ONE (11:30)
[2017-09-06 13:30] LABS: Basophils # (auto) 0.1 uL; Basophils % (auto) 0.4 % (0.0-2.0); Eosinophils # (auto) 0 uL; Eosinophils % (auto) 0.3 % (0.0-7.0); Hemoglobin 16.6 g/dL (13.5-17.5); Lymphocytes # (auto) 1.6 uL; Lymphocytes % (auto) 12.1 % (10.0-50.0); Mean Corpuscular Hgb Conc. 34.6 g/dL (32.0-36.0); Mean Corpuscular Volume 86.8 fL (80.0-100.0); Monocytes # (auto) 0.8 uL; Monocytes % (auto) 5.9 % (0.0-12.0); Neutrophils # (auto) 10.6 uL; Neutrophils % (auto) 81.3 % (37.0-80.0); Nucleated Red Blood Cells % 0.2 %; Platelet Count (auto) 274 10^3/uL (140-450); Red Blood Cells 5.53 10^6/uL (4.5-5.90); Red Cell Distribution Width 13.9 % (11.8-14.3); White Blood Cell 13.1 10^3/uL (4.4-10.8)
[2017-09-06 13:34] LABS: BUN/Creatinine Ratio 8.3; Potassium 3.4 mmol/L (3.5-5.1)
[2017-09-06 13:35] LABS: Albumin 4.6 g/dL (3.4-5.0); Bilirubin, Total 1.1 mg/dL (0.2-1.0); Calcium 9.4 mg/dL (8.5-10.1); Total Protein 8.2 g/dL (6.4-8.2)
== END 2017-09-06 13:15 | disposition left against medical advice (07) ==
LOC: EDBD 10:55 → ER 11:00
DX: R11.2 Nausea with vomiting, unspecified (principal); F12.10 Cannabis abuse, uncomplicated; K21.9 Gastro-esophageal reflux disease without esophagitis; Z88.6 Allergy status to analgesic agent; Z88.8 Allergy status to other drugs, medicaments and biological substances; Z90.49 Acquired absence of other specified parts of digestive tract
CPT/HCPCS: 36415; 80053; 85025; 96361; 96372; 96374; 99285; J2550; J2765; J7030

== ENCOUNTER 2017-09-06 16:12 | Emergency (ER) | payer OTHER ==
[~2017-09-06] VITALS: Ht 162.6 cm; Wt 79.4 kg
[2017-09-06] MEDS ORDERED: SODIUM CHLORIDE 0.9% 1,000 ML IV ONE (16:29)
[2017-09-06] MEDS ORDERED: PROMETHAZINE HCL 25 MG/ML 1ML IV ONE (16:30)
[2017-09-06] MEDS ORDERED: ONDANSETRON HCL 4 MG/2 ML VIAL ONE (19:49)
[2017-09-06 19:55] VITALS: BP 130/78
[2017-09-06] MEDS ORDERED: ONDANSETRON HCL 4 MG/2 ML VIAL IM ONE (20:00)
== END 2017-09-06 20:02 | disposition home or self-care (01) ==
LOC: ER 16:12
DX: R11.2 Nausea with vomiting, unspecified (principal); F12.10 Cannabis abuse, uncomplicated; K21.9 Gastro-esophageal reflux disease without esophagitis; Z90.49 Acquired absence of other specified parts of digestive tract; Z88.8 Allergy status to other drugs, medicaments and biological substances
CPT/HCPCS: 96372; 99283; J2405

== ENCOUNTER 2017-09-08 07:54 | Emergency (ER) | payer OTHER ==
[~2017-09-08] VITALS: Ht 165.1 cm; Wt 77.1 kg
[2017-09-08 08:47] LABS: Basophils # (auto) 0 uL; Basophils % (auto) 0.5 % (0.0-2.0); Eosinophils # (auto) 0.1 uL; Eosinophils % (auto) 0.9 % (0.0-7.0); Hematocrit 45.5 % (41.0-53.0); Hemoglobin 15.8 g/dL (13.5-17.5); Lymphocytes # (auto) 2.5 uL; Lymphocytes % (auto) 30.3 % (10.0-50.0); Mean Corpuscular Hemoglobin 29.8 pg (28.0-32.0); Mean Corpuscular Hgb Conc. 34.7 g/dL (32.0-36.0); Mean Corpuscular Volume 85.7 fL (80.0-100.0); Monocytes # (auto) 0.6 uL; Monocytes % (auto) 7.6 % (0.0-12.0); Neutrophils # (auto) 4.9 uL; Neutrophils % (auto) 60.7 % (37.0-80.0); Nucleated Red Blood Cells % 0.1 %; Platelet Count (auto) 294 10^3/uL (140-450); Red Blood Cells 5.31 10^6/uL (4.5-5.90); Red Cell Distribution Width 13.8 % (11.8-14.3); White Blood Cell 8.1 10^3/uL (4.4-10.8)
[2017-09-08] MEDS ORDERED: PROMETHAZINE HCL 25 MG/ML 1ML IV ONE (09:00)
[2017-09-08 09:02] LABS: BUN/Creatinine Ratio 9.3; Calcium 9.1 mg/dL (8.5-10.1)
[2017-09-08] MEDS ORDERED: SODIUM CHLORIDE 0.9% 1,000 ML IV ONE ×2 (09:07)
[2017-09-08] MEDS ORDERED: PANTOPRAZOLE 40 MG/10 ML VIAL IV ONE (10:45)
[2017-09-08 11:24] LABS: Urine Bacteria NONE SEEN /hpf (None Seen); Urine Blood Negative /uL (Negative); Urine Mucus MODERATE (None Seen); Urine Specific Gravity 1.032 (1.001-1.035); Urine WBC 7 /hpf (0 - 3)
[2017-09-08 11:30] VITALS: BP 150/74
[2017-09-08 11:35] LABS: Amphetamine Screen, Urine NEGATIVE (NEGATIVE); Barbiturate Scree,Urine NEGATIVE (NEGATIVE); Benzodiazephine Screen, Urine NEGATIVE (NEGATIVE); Cannabinoid Screen, Urine POSITIVE (NEGATIVE); Cocaine Screen, Urine NEGATIVE (NEGATIVE); Opiate Scree,Urine NEGATIVE (NEGATIVE); Phencyclidine Screen, Urine NEGATIVE (NEGATIVE)
[2017-09-08] MEDS ORDERED: POTASSIUM CHL 10% (20 MEQ/15ML) 15ml ORAL SOLN PO ONE (12:30)
== END 2017-09-08 12:33 | disposition home or self-care (01) ==
LOC: EDBD 07:54 → EDUNIT# 07:54 → ER 07:54
DX: F12.10 Cannabis abuse, uncomplicated (principal); R11.2 Nausea with vomiting, unspecified; K21.9 Gastro-esophageal reflux disease without esophagitis; Z88.8 Allergy status to other drugs, medicaments and biological substances; Z91.048 Other nonmedicinal substance allergy status; Z90.49 Acquired absence of other specified parts of digestive tract
CPT/HCPCS: 36415; 80048; 80307; 81001; 85025; 96361; 96374; 96375; 99285; C9113; J2550; J7030

== ENCOUNTER 2017-09-09 11:14 | Emergency (ER) | payer OTHER ==
[~2017-09-09] VITALS: Ht 167.6 cm; Wt 77.1 kg
[2017-09-09] MEDS ORDERED: ONDANSETRON ODT 4 MG TAB PO ONE (11:30)
[2017-09-09] MEDS ORDERED: PANTOPRAZOLE 40 MG TAB PO ONE (11:30)
[2017-09-09 11:57] VITALS: BP 121/70
== END 2017-09-09 12:18 | disposition home or self-care (01) ==
LOC: ER 11:14 → EDBD 11:14 → ER 12:18
DX: K29.70 Gastritis, unspecified, without bleeding (principal); F12.10 Cannabis abuse, uncomplicated; K21.9 Gastro-esophageal reflux disease without esophagitis; Z88.8 Allergy status to other drugs, medicaments and biological substances; Z91.048 Other nonmedicinal substance allergy status; Z90.49 Acquired absence of other specified parts of digestive tract
CPT/HCPCS: 99283; Q0162

== ENCOUNTER 2017-12-01 13:45 | Emergency (ER) | payer MEDICAID, OTHER ==
[~2017-12-01] VITALS: Ht 165.1 cm; Wt 77.1 kg
[2017-12-01 14:14] VITALS: BP 136/62
[2017-12-01 14:55] LABS: Hematocrit 48.6 % (41.0-53.0); Hemoglobin 17.1 g/dL (13.5-17.5); Mean Corpuscular Hemoglobin 29.9 pg (28.0-32.0); Mean Corpuscular Hgb Conc. 35.2 g/dL (32.0-36.0); Platelet Count (auto) 329 10^3/uL (140-450); Red Blood Cells 5.72 10^6/uL (4.5-5.90); Red Cell Distribution Width 13.8 % (11.8-14.3); White Blood Cell 12.1 10^3/uL (4.4-10.8)
[2017-12-01 15:03] LABS: Band Neutrophils % (manual) 0; Basophils % (manual) 0 (0.0-2.0); Blast Cells 0; Eosinophils % (manual) 0 (0-7); Metamyelocytes % 0; Myelocytes % 0; Promyelocytes % 0; Reactive Lymphocytes 0
[2017-12-01 15:18] LABS: Alanine Aminotransferase 36 U/L (16-61); Albumin 4.7 g/dL (3.4-5.0); Alkaline Phosphatase 89 U/L (45-117); Anion Gap 17 (5-15); Aspartate Aminotransferase 28 U/L (15-37); BUN/Creatinine Ratio 17.2; Bilirubin, Total 1.9 mg/dL (0.2-1.0); Blood Urea Nitrogen 25 mg/dL (7-18); Calcium 8.5 mg/dL (8.5-10.1); Carbon Dioxide 28 mmol/L (21-32); Chloride 85 mmol/L (98-107); GFR African American 80 mL/min; GFR Non-African American 66 mL/min; Glucose 93 mg/dL (74-106); Sodium 130 mmol/L (136-145); Total Protein 8.4 g/dL (6.4-8.2)
[2017-12-01 15:31] LABS: Potassium 2.6 mmol/L (3.5-5.1)
[2017-12-01] MEDS ORDERED: POTASSIUM CHL 20MEQ/100ML 100 ML IV ONE (15:45)
[2017-12-01] MEDS ORDERED: ALUM & MAG HYDROX-SIMETH LIQ(MAALOX) 30 ML PO ONE (16:00)
[2017-12-01 16:42] LABS: Lymphocytes % (manual) 10 (10.0-50.0); Monocytes % (manual) 12 (0-12)
== END 2017-12-01 17:54 | disposition left against medical advice (07) ==
LOC: EDBD 13:45 → ER 13:48
DX: F45.8 Other somatoform disorders (principal); K21.9 Gastro-esophageal reflux disease without esophagitis; E87.6 Hypokalemia; Z53.29 Procedure and treatment not carried out because of patient's decision for other reasons; Z90.49 Acquired absence of other specified parts of digestive tract
CPT/HCPCS: 36415; 70450; 71045; 80053; 84484; 85007; 85027; 93005; 94761

== ENCOUNTER 2018-03-13 12:07 | Emergency (ER) | payer MEDICAID ==
[~2018-03-13] VITALS: Ht 165.1 cm; Wt 81.6 kg
[2018-03-13] MEDS ORDERED: SODIUM CHLORIDE 0.9% 1,000 ML IV ONE (12:51)
[2018-03-13 12:58] LABS: Basophils # (auto) 0 uL; Basophils % (auto) 0.2 % (0.0-2.0); Eosinophils # (auto) 0 uL; Hemoglobin 17.9 g/dL (13.5-17.5); Monocytes # (auto) 0.7 uL; Neutrophils # (auto) 10.6 uL
[2018-03-13 13:00] LABS: Hematocrit 50.1 % (41.0-53.0); Lymphocytes # (auto) 1.2 uL; Lymphocytes % (auto) 9.6 % (10.0-50.0); Mean Corpuscular Hemoglobin 30.2 pg (28.0-32.0); Mean Corpuscular Hgb Conc. 35.8 g/dL (32.0-36.0); Mean Corpuscular Volume 84.3 fL (80.0-100.0); Monocytes % (auto) 5.7 % (0.0-12.0); Neutrophils % (auto) 84.5 % (37.0-80.0); Nucleated Red Blood Cells % 0.1 %; Platelet Count (auto) 314 10^3/uL (140-450); Red Blood Cells 5.95 10^6/uL (4.5-5.90); Red Cell Distribution Width 13.5 % (11.8-14.3); White Blood Cell 12.6 10^3/uL (4.4-10.8)
[2018-03-13] MEDS ORDERED: PANTOPRAZOLE 40 MG/10 ML VIAL IV ONE (13:00)
[2018-03-13 13:29] LABS: Albumin 4.7 g/dL (3.4-5.0); Calcium 9.3 mg/dL (8.5-10.1); Potassium 3.2 mmol/L (3.5-5.1)
[2018-03-13 13:34] LABS: BUN/Creatinine Ratio 16.9; Bilirubin, Total 1.5 mg/dL (0.2-1.0); Total Protein 8.2 g/dL (6.4-8.2)
[2018-03-13 13:40] VITALS: BP 133/73
[2018-03-13] MEDS ORDERED: POTASSIUM EFFERVESENT TAB 25 MEQ PO ONE (15:30)
== END 2018-03-13 16:51 | disposition home or self-care (01) ==
LOC: EDBD 12:07 → ER 12:07
DX: K21.9 Gastro-esophageal reflux disease without esophagitis (principal); R11.2 Nausea with vomiting, unspecified; D72.829 Elevated white blood cell count, unspecified; F12.10 Cannabis abuse, uncomplicated; Z88.8 Allergy status to other drugs, medicaments and biological substances; Z90.49 Acquired absence of other specified parts of digestive tract; Z79.899 Other long term (current) drug therapy
CPT/HCPCS: 36415; 74176; 80053; 82150; 83690; 85025; 96361; 96374; 99284; C9113; J7030

== ENCOUNTER 2018-06-07 14:43 | Emergency (ER) | payer MEDICAID ==
[~2018-06-07] VITALS: Ht 162.6 cm; Wt 77.1 kg
[2018-06-07 15:28] LABS: Basophils # (auto) 0 uL; Basophils % (auto) 0.3 % (0.0-2.0); Eosinophils # (auto) 0 uL; Eosinophils % (auto) 0.1 % (0.0-7.0); Hematocrit 47.4 % (41.0-53.0); Hemoglobin 16.1 g/dL (13.5-17.5); Lymphocytes # (auto) 1.1 uL; Lymphocytes % (auto) 12.2 % (10.0-50.0); Mean Corpuscular Hemoglobin 29.8 pg (28.0-32.0); Mean Corpuscular Volume 87.6 fL (80.0-100.0); Monocytes # (auto) 0.3 uL; Monocytes % (auto) 3.5 % (0.0-12.0); Neutrophils # (auto) 7.5 uL; Neutrophils % (auto) 83.9 % (37.0-80.0); Nucleated Red Blood Cells % 0.2 %; Platelet Count (auto) 387 10^3/uL (140-450); Red Blood Cells 5.41 10^6/uL (4.5-5.90); Red Cell Distribution Width 14.3 % (11.8-14.3)
[2018-06-07 15:56] LABS: Albumin 4.6 g/dL (3.4-5.0); Calcium 9.7 mg/dL (8.5-10.1); Potassium 4.3 mmol/L (3.5-5.1)
[2018-06-07 15:59] LABS: BUN/Creatinine Ratio 8.6; Bilirubin, Total 0.4 mg/dL (0.2-1.0); Total Protein 8.3 g/dL (6.4-8.2)
[2018-06-07] MEDS ORDERED: PROCHLORPERAZINE EDISYLATE 5 MG/ML 2ML VIAL IV ONE ×2 (17:15→19:30)
[2018-06-07] MEDS ORDERED: ONDANSETRON HCL 4 MG/2 ML VIAL IV ONE (17:30)
[2018-06-07] MEDS ORDERED: ALUM & MAG HYDROX-SIMETH LIQ(MAALOX) 30 ML PO ONE (18:15)
[2018-06-07] MEDS ORDERED: DONNATAL 5ml ORAL Elix (BELLADONNA ALK-PHENOBARB) PO ONE (18:15)
[2018-06-07] MEDS ORDERED: PANTOPRAZOLE 40 MG/10 ML VIAL IV ONE (18:15)
[2018-06-07] MEDS ORDERED: LIDOCAINE VISCOUS 2% 15ML UD PO ONE (18:15)
[2018-06-07] MEDS ORDERED: SODIUM CHLORIDE 0.9% 1,000 ML IV ONE (19:30)
[2018-06-07] MEDS ORDERED: MORPHINE SULFATE 4 MG/ML SYR/VIAL IV ONE (19:30)
[2018-06-07 19:45] VITALS: BP 108/57
[2018-06-07 20:20] LABS: Urine Bacteria NONE SEEN /hpf (None Seen); Urine Blood Negative /uL (Negative); Urine Mucus FEW (None Seen); Urine Specific Gravity 1.018 (1.001-1.035); Urine WBC <1 /hpf (0 - 3)
[2018-06-07 20:45] LABS: Alcohol, Urine < 3.0 mg/dL (0-5); Amphetamine Screen, Urine NEGATIVE (NEGATIVE); Barbiturate Scree,Urine NEGATIVE (NEGATIVE); Benzodiazephine Screen, Urine NEGATIVE (NEGATIVE); Cannabinoid Screen, Urine POSITIVE (NEGATIVE); Cocaine Screen, Urine NEGATIVE (NEGATIVE); Opiate Scree,Urine NEGATIVE (NEGATIVE); Phencyclidine Screen, Urine NEGATIVE (NEGATIVE)
== END 2018-06-07 21:46 | disposition home or self-care (01) ==
LOC: ER 14:43 → EDBD 14:43 → ER 21:46
DX: K29.70 Gastritis, unspecified, without bleeding (principal); R06.6 Hiccough; F19.10 Other psychoactive substance abuse, uncomplicated; K21.9 Gastro-esophageal reflux disease without esophagitis; Z90.49 Acquired absence of other specified parts of digestive tract; F12.90 Cannabis use, unspecified, uncomplicated; Z88.8 Allergy status to other drugs, medicaments and biological substances; Z79.899 Other long term (current) drug therapy
CPT/HCPCS: 36415; 74176; 80053; 80307; 81001; 82150; 83690; 85025; 96361; 96374; 96375; 99284; C9113; J0780; J2270; J2405; J7030

== ENCOUNTER 2018-12-24 15:41 | Emergency (ER) | payer MEDICAID ==
[~2018-12-24] VITALS: Ht 165.1 cm; Wt 79.4 kg
[2018-12-24] MEDS ORDERED: FAMOTIDINE (10MG/ML) 2ML VL IV ONE (16:30)
[2018-12-24] MEDS ORDERED: ONDANSETRON HCL 4 MG/2 ML VIAL IV ONE (16:30)
[2018-12-24] MEDS ORDERED: MORPHINE SULFATE 4 MG/ML SYR/VIAL IV ONE (16:30)
[2018-12-24] MEDS ORDERED: SODIUM CHLORIDE 0.9% 1,000 ML IVB ONE (16:30)
[2018-12-24 17:29] LABS: Basophils # (auto) 0 uL; Basophils % (auto) 0.2 % (0.0-2.0); Eosinophils # (auto) 0 uL; Hematocrit 49.5 % (41.0-53.0); Hemoglobin 17.2 g/dL (13.5-17.5); Lymphocytes # (auto) 1.2 uL; Lymphocytes % (auto) 12.4 % (10.0-50.0); Mean Corpuscular Hemoglobin 30.3 pg (28.0-32.0); Mean Corpuscular Hgb Conc. 34.8 g/dL (32.0-36.0); Mean Corpuscular Volume 87.1 fL (80.0-100.0); Monocytes # (auto) 0.6 uL; Monocytes % (auto) 6.1 % (0.0-12.0); Neutrophils % (auto) 81.3 % (37.0-80.0); Nucleated Red Blood Cells % 0.3 %; Platelet Count (auto) 375 10^3/uL (140-450); Red Blood Cells 5.68 10^6/uL (4.5-5.90); Red Cell Distribution Width 13.9 % (11.8-14.3); White Blood Cell 9.9 10^3/uL (4.4-10.8)
[2018-12-24 17:38] LABS: Albumin 5.2 g/dL (3.4-5.0); BUN/Creatinine Ratio 12.9; Calcium 9.9 mg/dL (8.5-10.1); Potassium 3.6 mmol/L (3.5-5.1)
[2018-12-24 17:40] LABS: Bilirubin, Total 1.3 mg/dL (0.2-1.0); Total Protein 9.1 g/dL (6.4-8.2)
[2018-12-24 19:19] VITALS: BP 129/76
== END 2018-12-24 19:55 | disposition home or self-care (01) ==
LOC: ER 15:41
DX: F12.188 Cannabis abuse with other cannabis-induced disorder (principal); K21.9 Gastro-esophageal reflux disease without esophagitis; Z90.49 Acquired absence of other specified parts of digestive tract; Z88.6 Allergy status to analgesic agent; Z88.8 Allergy status to other drugs, medicaments and biological substances
CPT/HCPCS: 36415; 80053; 83690; 85025; 94761; 96361; 96374; 96375; 99283; J2270; J2405; J3490; J7030

== ENCOUNTER 2018-12-25 12:31 | Emergency (ER) | payer MEDICAID ==
[~2018-12-25] VITALS: Ht 177.8 cm; Wt 79.4 kg
[2018-12-25] MEDS ORDERED: SODIUM CHLORIDE 0.9% 1,000 ML IVB ONE (12:38)
[2018-12-25] MEDS ORDERED: ONDANSETRON HCL 4 MG/2 ML VIAL IV ONE (12:45)
[2018-12-25] MEDS ORDERED: MORPHINE SULFATE 4 MG/ML SYR/VIAL IV ONE (12:45)
[2018-12-25] MEDS ORDERED: FAMOTIDINE (10MG/ML) 2ML VL IV ONE (12:45)
[2018-12-25 15:29] VITALS: BP 99/58
== END 2018-12-25 17:14 | disposition home or self-care (01) ==
LOC: ER 12:31 → EDBD 12:31 → ER 17:14
DX: F12.188 Cannabis abuse with other cannabis-induced disorder (principal); K21.9 Gastro-esophageal reflux disease without esophagitis; Z90.49 Acquired absence of other specified parts of digestive tract; Z88.6 Allergy status to analgesic agent; Z88.8 Allergy status to other drugs, medicaments and biological substances
CPT/HCPCS: 36415; 86703; 86803; 94761; 96361; 96374; 96375; 99283; J2270; J2405; J3490; J7030

== ENCOUNTER → 2019-08-17 | Emergency (ER) | payer MEDICAID ==
[~2019-08-17] VITALS: Ht 165.1 cm; Wt 63.5 kg
[~2019-08-17] MED LIST changes: +MORPHINE SULF INJ 2 MG/ML SYRINGE 1ML ONE; +MORPHINE SULFATE 4 MG/ML SYR/VIAL IV ONE; +NALBUPHINE HCL 10 MG/1ml INJECTION IV ONE; +ONDANSETRON HCL 4 MG/2 ML VIAL IV ONE; +SODIUM CHLORIDE 0.9% 1,000 ML IVB ONE
[2019-08-17 17:25] LABS: Basophils # (auto) 0 10 ^3/uL (0-0.2); Basophils % (auto) 0.2 % (0.0-2.0); Eosinophils # (auto) 0 10 ^3/uL (0-0.8); Hemoglobin 16.5 g/dL (13.5-17.5); Lymphocytes # (auto) 1.1 10 ^3/uL (0.4-5.4); Lymphocytes % (auto) 5.4 % (10.0-50.0); Mean Corpuscular Hemoglobin 28.8 pg (28.0-32.0); Mean Corpuscular Hgb Conc. 33.1 g/dL (32.0-36.0); Mean Corpuscular Volume 87.1 fL (80.0-100.0); Monocytes # (auto) 0.7 10 ^3/uL (0-1.3); Monocytes % (auto) 3.4 % (0.0-12.0); Neutrophils # (auto) 18.6 10 ^3/uL (1.6-8.6); Platelet Count (auto) 386 10^3/uL (140-450); Red Blood Cells 5.74 10^6/uL (4.5-5.90); Red Cell Distribution Width 14.3 % (11.8-14.3); White Blood Cell 20.4 10^3/uL (4.4-10.8)
[2019-08-17 17:40] LABS: Albumin 4.7 g/dL (3.4-5.0); BUN/Creatinine Ratio 14.9; Calcium 10.4 mg/dL (8.5-10.1); Potassium 4.3 mmol/L (3.5-5.1)
[2019-08-17 17:51] LABS: Bilirubin, Total 0.6 mg/dL (0.2-1.0)
[2019-08-17 20:00] VITALS: BP 120/55
== END | disposition home or self-care (01) ==
LOC: ER 16:32
DX: R10.84 Generalized abdominal pain (principal); R11.2 Nausea with vomiting, unspecified; R19.7 Diarrhea, unspecified; K21.9 Gastro-esophageal reflux disease without esophagitis; Z88.8 Allergy status to other drugs, medicaments and biological substances
CPT/HCPCS: 36415; 74176; 80053; 82150; 83690; 85025; 96361; 96374; 96375; 99284; J2270; J2405; J7030

== ENCOUNTER 2019-08-19 07:29 | Emergency (ER) | payer MEDICAID ==
[~2019-08-19] VITALS: Ht 165.1 cm; Wt 63.5 kg
[~2019-08-19 07:29] MED LIST changes: -MORPHINE SULF INJ 2 MG/ML SYRINGE 1ML ONE; -MORPHINE SULFATE 4 MG/ML SYR/VIAL IV ONE; -NALBUPHINE HCL 10 MG/1ml INJECTION IV ONE; -ONDANSETRON HCL 4 MG/2 ML VIAL IV ONE; -SODIUM CHLORIDE 0.9% 1,000 ML IVB ONE
[2019-08-19] MEDS ORDERED: SODIUM CHLORIDE 0.9% 1,000 ML IVB ONE (07:37)
[2019-08-19] MEDS ORDERED: SODIUM CHLORIDE 0.9% 1,000 ML IV ONE (07:37)
[2019-08-19] MEDS ORDERED: PROMETHAZINE HCL 25 MG/ML 1ML IV PRN (07:45)
[2019-08-19 07:51] LABS: Basophils # (auto) 0.1 10 ^3/uL (0-0.2); Basophils % (auto) 0.7 % (0.0-2.0); Eosinophils # (auto) 0.1 10 ^3/uL (0-0.8); Eosinophils % (auto) 0.7 % (0.0-7.0); Hematocrit 46.9 % (41.0-53.0); Hemoglobin 16.2 g/dL (13.5-17.5); Lymphocytes # (auto) 2.7 10 ^3/uL (0.4-5.4); Lymphocytes % (auto) 32.7 % (10.0-50.0); Mean Corpuscular Hemoglobin 30.1 pg (28.0-32.0); Mean Corpuscular Hgb Conc. 34.5 g/dL (32.0-36.0); Mean Corpuscular Volume 87.2 fL (80.0-100.0); Monocytes # (auto) 0.7 10 ^3/uL (0-1.3); Monocytes % (auto) 8.1 % (0.0-12.0); Neutrophils # (auto) 4.7 10 ^3/uL (1.6-8.6); Neutrophils % (auto) 57.8 % (37.0-80.0); Nucleated Red Blood Cells % 0.1 %; Platelet Count (auto) 353 10^3/uL (140-450); Red Blood Cells 5.38 10^6/uL (4.5-5.90); Red Cell Distribution Width 14.5 % (11.8-14.3); White Blood Cell 8.1 10^3/uL (4.4-10.8)
[2019-08-19] MEDS ORDERED: PROMETHAZINE HCL 25 MG/ML 1ML ONE (07:55)
[2019-08-19] MEDS ORDERED: KETOROLAC TROMETH 30 MG/ML 1ML VIAL IV ONE (08:00)
[2019-08-19 08:12] LABS: Albumin 4.2 g/dL (3.4-5.0); Calcium 9.2 mg/dL (8.5-10.1); Potassium 3.3 mmol/L (3.5-5.1)
[2019-08-19 08:15] LABS: BUN/Creatinine Ratio 14.8; Bilirubin, Total 0.9 mg/dL (0.2-1.0)
[2019-08-19] MEDS ORDERED: MORPHINE SULF INJ 2 MG/ML SYRINGE 1ML IV ONE (09:15)
[2019-08-19 09:30] LABS: Urine Amorphous Crystal FEW /hpf (None Seen); Urine Bacteria NONE SEEN /hpf (None Seen); Urine Blood Negative /uL (Negative); Urine Mucus FEW (None Seen); Urine WBC 1 /hpf (0 - 3)
[2019-08-19 09:44] LABS: Alcohol, Urine < 3.0 mg/dL (0-5); Amphetamine Screen, Urine NEGATIVE (NEGATIVE); Barbiturate Scree,Urine NEGATIVE (NEGATIVE); Benzodiazephine Screen, Urine NEGATIVE (NEGATIVE); Cannabinoid Screen, Urine POSITIVE (NEGATIVE); Cocaine Screen, Urine NEGATIVE (NEGATIVE)
[2019-08-19] MEDS ORDERED: POTASSIUM EFFERVESENT TAB 25 MEQ PO ONE (09:45)
[2019-08-19 09:54] LABS: Opiate Scree,Urine NEGATIVE (NEGATIVE); Phencyclidine Screen, Urine NEGATIVE (NEGATIVE)
[2019-08-19] MEDS ORDERED: ONDANSETRON HCL 4 MG/2 ML VIAL IV ONE (10:00)
[2019-08-19] MEDS ORDERED: PANTOPRAZOLE 40 MG/10 ML VIAL INJ IV ONE (10:00)
[2019-08-19] MEDS ORDERED: POTASSIUM CHL 20MEQ/100ML 100 ML IV ONE (10:45)
[2019-08-19] MEDS ORDERED: PROCHLORPERAZINE EDISYLATE 5 MG/ML 2ML VIAL IV ONE (11:15)
[2019-08-19 12:02] VITALS: BP 108/40
== END 2019-08-19 12:42 | disposition home or self-care (01) ==
LOC: ER 07:29
DX: R10.84 Generalized abdominal pain (principal); E86.0 Dehydration; E87.6 Hypokalemia; F12.10 Cannabis abuse, uncomplicated; K21.9 Gastro-esophageal reflux disease without esophagitis; Z90.49 Acquired absence of other specified parts of digestive tract; Z88.8 Allergy status to other drugs, medicaments and biological substances; Z79.899 Other long term (current) drug therapy
CPT/HCPCS: 36415; 80053; 80307; 81001; 83690; 85025; 96361; 96365; 96366; 96375; 99284; C9113; J0780; J1885; J2405; J2550; J3480

== ENCOUNTER 2019-10-03 20:24 | Inpatient (IN) | payer MEDICAID ==
[~2019-10-03] VITALS: Ht 167.6 cm; Wt 59.0 kg
[2019-10-03] MEDS ORDERED: SODIUM CHLORIDE 0.9% 1,000 ML IVB ONE (20:29)
[2019-10-03] MEDS ORDERED: PROMETHAZINE HCL 25 MG/ML 1ML IV ONE (20:30)
[2019-10-03] MEDS ORDERED: diphenhdrAMINE HCL 50 MG/1 ML VL IV ONE (21:30)
[2019-10-03 21:56] LABS: Basophils # (auto) 0 10 ^3/uL (0-0.2); Basophils % (auto) 0.1 % (0.0-2.0); Eosinophils # (auto) 0 10 ^3/uL (0-0.8); Hematocrit 48.1 % (41.0-53.0); Hemoglobin 16.2 g/dL (13.5-17.5); Lymphocytes # (auto) 0.8 10 ^3/uL (0.4-5.4); Lymphocytes % (auto) 3.8 % (10.0-50.0); Mean Corpuscular Hemoglobin 29.6 pg (28.0-32.0); Mean Corpuscular Hgb Conc. 33.7 g/dL (32.0-36.0); Monocytes # (auto) 0.9 10 ^3/uL (0-1.3); Monocytes % (auto) 4.3 % (0.0-12.0); Neutrophils % (auto) 91.8 % (37.0-80.0); Platelet Count (auto) 331 10^3/uL (140-450); Red Blood Cells 5.46 10^6/uL (4.5-5.90); Red Cell Distribution Width 14.2 % (11.8-14.3); White Blood Cell 20.7 10^3/uL (4.4-10.8)
[2019-10-03 22:25] LABS: Albumin 4.4 g/dL (3.4-5.0); BUN/Creatinine Ratio 13.8; Calcium 8.9 mg/dL (8.5-10.1)
[2019-10-03 22:29] LABS: Bilirubin, Total 0.6 mg/dL (0.2-1.0); Total Protein 8.2 g/dL (6.4-8.2)
[2019-10-03] MEDS ORDERED: metroNIDAZOLE 500MG/100ML 100 ML IV ONE (22:30)
[2019-10-03] MEDS ORDERED: cefTRIAXone 1GM/50ML D5W 50 ML IV ONE (22:30)
[2019-10-03 22:45] LABS: Urine Bacteria NONE SEEN /hpf (None Seen); Urine Blood Negative /uL (Negative); Urine Mucus FEW (None Seen); Urine WBC 1 /hpf (0 - 3)
[2019-10-03] MEDS ORDERED: SODIUM CHLORIDE 0.9% 1,000 ML IV ONE (22:45)
[2019-10-03] MEDS ORDERED: PANTOPRAZOLE 40 MG/10 ML VIAL INJ IV ONE (22:45)
[2019-10-03 22:47] LABS: Alcohol, Urine < 3.0 mg/dL (0-10); Amphetamine Screen, Urine NEGATIVE (NEGATIVE); Barbiturate Scree,Urine NEGATIVE (NEGATIVE); Benzodiazephine Screen, Urine NEGATIVE (NEGATIVE); Cannabinoid Screen, Urine POSITIVE (NEGATIVE); Cocaine Screen, Urine NEGATIVE (NEGATIVE); Opiate Scree,Urine NEGATIVE (NEGATIVE)
[2019-10-03 22:55] LABS: Phencyclidine Screen, Urine NEGATIVE (NEGATIVE)
[2019-10-04] MEDS ORDERED: SODIUM CHLORIDE 0.9% 1,000 ML IV SCH (00:13)
[2019-10-04] MEDS ORDERED: MORPHINE SULF INJ 2 MG/ML SYRINGE 1ML IV PRN (00:15)
[2019-10-04] MEDS ORDERED: SODIUM CHLORIDE 0.9% 1,000 ML IV ONE (00:15)
[2019-10-04] MEDS ORDERED: DOCUSATE SOD 100 MG CAP PO PRN (00:15)
[2019-10-04] MEDS ORDERED: ACETAMINOPHEN 325 MG TAB PO PRN (00:15)
[2019-10-04] MEDS ORDERED: ONDANSETRON HCL 4 MG/2 ML VIAL IV PRN ×2 (00:15)
[2019-10-04] MEDS ORDERED: LORazepam 0.5 MG TAB PO PRN (00:15)
[2019-10-04] MEDS ORDERED: METOCLOPRAMIDE HCL 5MG/ml INJ 2ml VIAL IV PRN (00:15)
[2019-10-04] MEDS ORDERED: HYDROcodone-ACET 5/325MG TAB PO PRN (00:15)
[2019-10-04] MEDS: metroNIDAZOLE 500MG/100ML 100 ML IV SCH ×2 (05:51→12:30)
[2019-10-04 06:08] LABS: Basophils # (auto) 0 10 ^3/uL (0-0.2); Basophils % (auto) 0.2 % (0.0-2.0); Eosinophils # (auto) 0 10 ^3/uL (0-0.8); Hematocrit 44.8 % (41.0-53.0); Hemoglobin 15.1 g/dL (13.5-17.5); Lymphocytes # (auto) 1.6 10 ^3/uL (0.4-5.4); Lymphocytes % (auto) 15.7 % (10.0-50.0); Mean Corpuscular Hemoglobin 29.9 pg (28.0-32.0); Mean Corpuscular Hgb Conc. 33.6 g/dL (32.0-36.0); Mean Corpuscular Volume 88.8 fL (80.0-100.0); Monocytes # (auto) 0.8 10 ^3/uL (0-1.3); Monocytes % (auto) 8.4 % (0.0-12.0); Neutrophils # (auto) 7.6 10 ^3/uL (1.6-8.6); Neutrophils % (auto) 75.7 % (37.0-80.0); Platelet Count (auto) 269 10^3/uL (140-450); Red Blood Cells 5.04 10^6/uL (4.5-5.90); Red Cell Distribution Width 14.1 % (11.8-14.3); White Blood Cell 10.1 10^3/uL (4.4-10.8)
[2019-10-04 06:35] LABS: Calcium 8.9 mg/dL (8.5-10.1)
[2019-10-04] MEDS ORDERED: cefTRIAXone 1GM/50ML D5W 50 ML IV SCH (10:00)
[2019-10-04] MEDS ORDERED: PANTOPRAZOLE 40 MG/10 ML VIAL INJ IV SCH (10:00)
[2019-10-04 11:08] VITALS: BP 112/64
[2019-10-04] MEDS ORDERED: METR500T PO (11:45)
[2019-10-04] MEDS ORDERED: ONDA-144 PO (11:45)
[2019-10-04] MEDS ORDERED: LEVO-28 PO (11:45)
[2019-10-04 11:51] LABS: INR 1.07 (0.9-1.15); Partial Thromboplastin Time 26.9 sec (23.64-32.05)
== END 2019-10-04 13:44 | disposition home or self-care (01) | DRG 249 ==
LOC: EDBD 20:24 → ER 20:27 → OVERFLOW 20:28
PROVIDERS: ADMIT Hospitalist; ATTEND Internal Medicine
DX: K52.9 Noninfective gastroenteritis and colitis, unspecified (principal); F12.90 Cannabis use, unspecified, uncomplicated; Z81.8 Family history of other mental and behavioral disorders; Z90.49 Acquired absence of other specified parts of digestive tract; K21.9 Gastro-esophageal reflux disease without esophagitis
CPT/HCPCS: 36415; 74176; 80048; 80053; 80061; 80307; 81001; 82150; 83690; 85025; 85379; 85610; 85730; C9113; G0378; J0696; J2405; J3490

== ENCOUNTER 2019-10-05 16:36 | Emergency (ER) | payer MEDICAID ==
[~2019-10-05] VITALS: Ht 165.1 cm; Wt 61.2 kg
[~2019-10-05 16:36] MED LIST changes: +LEVO-28 PO; +METR500T PO; +ONDA-144 PO
[2019-10-05 16:49] VITALS: BP 131/74
== END 2019-10-05 18:34 | disposition home or self-care (01) ==
LOC: ER 16:36
DX: F12.188 Cannabis abuse with other cannabis-induced disorder (principal); R11.2 Nausea with vomiting, unspecified; R10.9 Unspecified abdominal pain; K21.9 Gastro-esophageal reflux disease without esophagitis; Z88.8 Allergy status to other drugs, medicaments and biological substances

== ENCOUNTER 2019-12-03 19:17 | Emergency (ER) | payer MEDICAID ==
[~2019-12-03] VITALS: Ht 165.1 cm; Wt 74.8 kg
[2019-12-03] MEDS ORDERED: PANTOPRAZOLE 40 MG/10 ML VIAL INJ IV ONE (20:45)
[2019-12-03] MEDS ORDERED: ONDANSETRON ODT 4 MG TAB PO ONE (20:45)
[2019-12-03] MEDS ORDERED: ONDANSETRON HCL 4 MG/2 ML VIAL ONE (21:21)
[2019-12-03 21:22] LABS: Basophils # (auto) 0 10 ^3/uL (0-0.2); Basophils % (auto) 0.2 % (0.0-2.0); Eosinophils # (auto) 0 10 ^3/uL (0-0.8); Lymphocytes # (auto) 0.8 10 ^3/uL (0.4-5.4); Monocytes # (auto) 0.4 10 ^3/uL (0-1.3)
[2019-12-03 21:24] LABS: Hematocrit 52.1 % (41.0-53.0); Hemoglobin 17.9 g/dL (13.5-17.5); Lymphocytes % (auto) 5.7 % (10.0-50.0); Mean Corpuscular Hemoglobin 30.5 pg (28.0-32.0); Mean Corpuscular Hgb Conc. 34.4 g/dL (32.0-36.0); Mean Corpuscular Volume 88.6 fL (80.0-100.0); Neutrophils # (auto) 12.6 10 ^3/uL (1.6-8.6); Neutrophils % (auto) 91.1 % (37.0-80.0); Platelet Count (auto) 370 10^3/uL (140-450); Red Blood Cells 5.88 10^6/uL (4.5-5.90); Red Cell Distribution Width 14.3 % (11.8-14.3); White Blood Cell 13.9 10^3/uL (4.4-10.8)
[2019-12-03 21:38] LABS: INR 1.05 (0.9-1.15); Partial Thromboplastin Time 23.5 sec (23.0-31.2)
[2019-12-03 21:43] LABS: Albumin 5.2 g/dL (3.4-5.0); BUN/Creatinine Ratio 10.9; Calcium 10.2 mg/dL (8.5-10.1); Potassium 3.9 mmol/L (3.5-5.1)
[2019-12-03 21:46] LABS: Bilirubin, Total 0.8 mg/dL (0.2-1.0); Total Protein 9.6 g/dL (6.4-8.2)
[2019-12-03] MEDS ORDERED: SODIUM CHLORIDE 0.9% 2,000 ML IV ONE (22:00)
[2019-12-03] MEDS ORDERED: ONDANSETRON HCL 4 MG/2 ML VIAL IV ONE (22:00)
[2019-12-03 22:30] LABS: Urine Bacteria NONE SEEN /hpf (None Seen); Urine Blood Negative /uL (Negative); Urine Hyaline Cast FEW /lpf (0 - 2); Urine Mucus MODERATE (None Seen); Urine WBC 1 /hpf (0 - 3)
[2019-12-03 22:38] LABS: Amphetamine Screen, Urine NEGATIVE (NEGATIVE); Barbiturate Scree,Urine NEGATIVE (NEGATIVE); Benzodiazephine Screen, Urine NEGATIVE (NEGATIVE); Cannabinoid Screen, Urine POSITIVE (NEGATIVE); Cocaine Screen, Urine NEGATIVE (NEGATIVE); Phencyclidine Screen, Urine NEGATIVE (NEGATIVE)
[2019-12-03 22:45] LABS: Opiate Scree,Urine NEGATIVE (NEGATIVE)
[2019-12-03 23:18] VITALS: BP 128/67
== END 2019-12-03 23:30 | disposition home or self-care (01) ==
LOC: ER 19:17
DX: E86.0 Dehydration (principal); F12.988 Cannabis use, unspecified with other cannabis-induced disorder; I44.1 Atrioventricular block, second degree; Z71.51 Drug abuse counseling and surveillance of drug abuser; K21.9 Gastro-esophageal reflux disease without esophagitis
CPT/HCPCS: 36415; 74176; 80053; 80307; 81001; 82150; 83690; 83880; 84443; 84484; 85025; 85610; 85730; 93005; 96361; 96374; 96375; 99285; C9113; J2405; J7030